=== PATIENT | female | born 1940 ===

== ENCOUNTER 2021-07-05 12:00 | Inpatient (IN) | payer OTHER ==
[~2021-07-05] VITALS: Ht 152.4 cm; Wt 67.1 kg
[2021-07-05] MEDS ORDERED: PLAVIX75 MG PO (16:00)
[2021-07-05] MEDS ORDERED: CARDURA PO (16:00)
[2021-07-05] MEDS ORDERED: ACTO PO (16:01)
[2021-07-05] MEDS ORDERED: LIPITOR40 M1 PO (16:01)
[2021-07-05] MEDS ORDERED: SYNTHROID50 MCG PO (16:01)
[2021-07-05] MEDS ORDERED: TOPROL XL100 M1 PO (16:02)
[2021-07-05] MEDS ORDERED: ALENDRONATE SOD70 MG PO (16:02)
[2021-07-05] MEDS ORDERED: ATACAND32 MG PO (16:02)
[2021-07-05] MEDS ORDERED: LANTUS (16:03)
[2021-07-05] MEDS ORDERED: TRAZODONE HCL150 MG PO (16:03)
[2021-07-11] MEDS ORDERED: AMLODIPINE BESYL5 MG (09:38)
[2021-07-11] MEDS ORDERED: PANTOPRAZOLE SO40 MG (09:38)
[2021-07-11] MEDS ORDERED: ROSUVASTATIN CA10 MG (09:38)
[2021-07-11] MEDS ORDERED: FAMOTIDINE20 MG (09:38)
[2021-07-11] MEDS ORDERED: FLUOROMETHOLONE5 ML (09:39)
[2021-07-11] MEDS ORDERED: LEVO-T25 MCG (09:39)
[2021-07-11] MEDS ORDERED: CLOTRIMAZOLE-BE15 G1 (09:39)
[2021-07-11] MEDS ORDERED: TIMOLOL MALEATE5 M4 (09:39)
[2021-07-11] MEDS ORDERED: DONEPEZIL HCL10 MG (09:40)
[2021-07-11] MEDS ORDERED: GABAPENTIN300 M2 (09:40)
[2021-07-11] MEDS ORDERED: HYDROCORTISONE30 G4 (09:40)
[2021-07-11] MEDS ORDERED: MEMANTINE HCL5 MG (09:40)
[2021-07-11] MEDS ORDERED: GLIPIZIDE ER2.5 MG (09:40)
[2021-07-11] MEDS ORDERED: VITAMIN D31250 MCG (09:41)
[2021-07-11] MEDS ORDERED: QUETIAPINE FUMA25 MG (09:41)
[2021-07-11] MEDS ORDERED: DOXAZOSIN MESYLA2 MG PO (09:44)
[2021-08-04] MEDS ORDERED: TRAZODONE HCL50 MG PO (16:32)
[2021-08-04] MEDS ORDERED: GABAPENTIN300 M2 PO (16:32)
[2021-08-04] MEDS ORDERED: Neurin-Sl Tablet Sl SL (16:32)
[2021-08-04] MEDS ORDERED: LIPITOR40 M1 PO (16:32)
[2021-08-04] MEDS ORDERED: AMLODIPINE BESYL5 MG PO (16:32)
[2021-08-04] MEDS ORDERED: POLY119PG PO (16:32)
[2021-08-04] MEDS ORDERED: PLAVIX75 MG PO (16:32)
[2021-08-04] MEDS ORDERED: DOXAZOSIN MESYLA2 MG PO (16:32)
[2021-08-04] MEDS ORDERED: TOPROL XL100 M1 PO (16:32)
[2021-08-04] MEDS ORDERED: DONEPEZIL HCL10 MG PO (16:32)
[2021-08-04] MEDS ORDERED: SYNTHROID50 MCG PO (16:32)
[2021-08-04] MEDS ORDERED: GLIPIZIDE ER2.5 MG PO (16:32)
[2021-08-04] MEDS ORDERED: INTESTINEX680 M1 PO (16:32)
[2021-08-04] MEDS ORDERED: BENZONATATE100 MG PO (16:32)
[2021-08-04] MEDS ORDERED: MEMANTINE HCL5 MG PO (16:32)
[2021-08-04] MEDS ORDERED: INTEGRA F CAPS1 EACH PO (16:32)
[2021-08-04] MEDS ORDERED: ATACAND32 MG PO (16:32)
[2021-08-04] MEDS ORDERED: PROTONIX40 MG PO (16:32)
[2021-08-04] MEDS ORDERED: ALENDRONATE SOD70 MG PO (17:04)
[2021-08-04] MEDS ORDERED: MUCINEX DM ER1 EAC1 PO (17:04)
[2021-08-04] MEDS ORDERED: LANTUS SUBCUTANEO (17:04)
[2021-08-04] MEDS ORDERED: GLIPIZIDE XL10 MG PO (17:04)
== END 2021-08-04 23:34 | disposition home or self-care (01) | DRG 329 ==
LOC: SURH 07-10 07:00 → O/R 07-10 09:29 → SURH 07-10 12:00
PROVIDERS: ADMIT Surgery; ATTEND Surgery
PROC: 07BC4ZX Excision of Pelvis Lymphatic, Percutaneous Endoscopic Approach, Diagnostic (ICD-10-PCS; 2021-07-10)
PROC: 0DTF4ZZ Resection of Right Large Intestine, Percutaneous Endoscopic Approach (ICD-10-PCS; principal; 2021-07-10 07:00)
PROC: 4A12X4Z Monitoring of Cardiac Electrical Activity, External Approach (ICD-10-PCS; 2021-07-11)
PROC: 3E0F7SF Introduction of Other Gas into Respiratory Tract, Via Natural or Artificial Opening (ICD-10-PCS; 2021-07-11)
PROC: 30233N1 Transfusion of Nonautologous Red Blood Cells into Peripheral Vein, Percutaneous Approach (ICD-10-PCS; 2021-07-13)
PROC: 02HV33Z Insertion of Infusion Device into Superior Vena Cava, Percutaneous Approach (ICD-10-PCS; 2021-07-19)
PROC: 5A09557 Assistance with Respiratory Ventilation, Greater than 96 Consecutive Hours, Continuous Positive Airway Pressure (ICD-10-PCS; 2021-07-21)
DX: C18.2 Malignant neoplasm of ascending colon (principal); J18.9 Pneumonia, unspecified organism; J10.00 Influenza due to other identified influenza virus with unspecified type of pneumonia; J96.01 Acute respiratory failure with hypoxia; K92.0 Hematemesis; N17.8 Other acute kidney failure; N39.0 Urinary tract infection, site not specified; J98.11 Atelectasis; K56.7 Ileus, unspecified; I13.10 Hypertensive heart and chronic kidney disease without heart failure, with stage 1 through stage 4 chronic kidney disease, or unspecified chronic kidney disease; N18.31 Chronic kidney disease, stage 3a; D50.0 Iron deficiency anemia secondary to blood loss (chronic); E11.65 Type 2 diabetes mellitus with hyperglycemia; Z79.4 Long term (current) use of insulin; Z20.822 Contact with and (suspected) exposure to COVID-19; Z66 Do not resuscitate